=== PATIENT | female | born 1995 | race African-American/Black ===

== ENCOUNTER 2024-07-14 16:49 | Emergency (ER) | payer OTHER ==
[~2024-07-14] VITALS: Ht 147.3 cm; Wt 72.6 kg
[2024-07-14] MEDS ORDERED: PERCOCET 5-3251 EACH PO (17:53)
== END 2024-07-14 17:50 | disposition home or self-care (01) ==
LOC: ED 16:49
DX: S92.492A Other fracture of left great toe, initial encounter for closed fracture (principal); Z88.8 Allergy status to other drugs, medicaments and biological substances; W10.9XXA Fall (on) (from) unspecified stairs and steps, initial encounter; Y93.89 Activity, other specified; Y92.89 Other specified places as the place of occurrence of the external cause; Y99.8 Other external cause status

== ENCOUNTER 2024-10-31 11:40 | Emergency (ER) | payer BC ==
[~2024-10-31] VITALS: Ht 147.3 cm; Wt 72.6 kg
[~2024-10-31 11:40] MED LIST: PERCOCET 5-3251 EACH PO
== END 2024-10-31 13:37 | disposition home or self-care (01) ==
LOC: ED 11:40
DX: S43.401A Unspecified sprain of right shoulder joint, initial encounter (principal); Z88.8 Allergy status to other drugs, medicaments and biological substances; W10.8XXA Fall (on) (from) other stairs and steps, initial encounter; Y93.89 Activity, other specified; Y92.89 Other specified places as the place of occurrence of the external cause; Y99.8 Other external cause status